=== PATIENT | male | born 1995 | race Caucasian/White ===

== ENCOUNTER → 2018-12-18 | Outpatient (CLI) | payer BC | LOC: COL.RAD 06:47 | DX: N50.9 Disorder of male genital organs, unspecified (principal) ==

== ENCOUNTER 2019-04-20 21:09 | Emergency (ER) | payer BC ==
[~2019-04-20] VITALS: Ht 182.9 cm; Wt 122.7 kg
[2019-04-20 21:13] VITALS: TEMP 98.3
[2019-04-20] MEDS ORDERED: CEPHALEXIN500 M1 PO (22:49)
[2019-04-20 23:01] VITALS: BP 154/61; PULSE 94
== END 2019-04-20 23:01 | disposition home or self-care (01) ==
LOC: COL.ER 21:09
DX: S61.411A Laceration without foreign body of right hand, initial encounter (principal); W26.8XXA Contact with other sharp object(s), not elsewhere classified, initial encounter; Y92.009 Unspecified place in unspecified non-institutional (private) residence as the place of occurrence of the external cause

== ENCOUNTER 2019-05-02 08:20 | Emergency (ER) | payer BC ==
[~2019-05-02 08:20] MED LIST: CEPHALEXIN500 M1 PO
[2019-05-02 08:38] VITALS: BP 136/92; PULSE 73; TEMP 97
== END 2019-05-02 08:43 | disposition home or self-care (01) ==
LOC: COL.ER 08:20
DX: S61.411D Laceration without foreign body of right hand, subsequent encounter (principal)

== ENCOUNTER 2019-08-08 16:39 | Emergency (ER) | payer BC ==
[~2019-08-08] VITALS: Ht 180.3 cm; Wt 122.7 kg
[2019-08-08 16:52] VITALS: BP 153/90; PULSE 84; TEMP 98.3
== END 2019-08-08 17:45 | disposition left against medical advice (07) ==
LOC: COL.ER 16:39
DX: M79.671 Pain in right foot (principal)